=== PATIENT | female | born 1935 | race Hispanic/Latino ===

== ENCOUNTER 2017-10-28 07:20 | Day surgery (SDC) | payer MEDICARE ==
[2016-11-26 09:35] VITALS: PULSE 71
[2017-10-25 08:39] VITALS: BMI 22.1
[2017-10-28 08:01] VITALS: BP 134/83; PULSE 88; RESP 20; TEMP 97.8; O2SAT 98
[2017-10-28 08:19] LABS: BASO # 0.1 K/uL (0.0-0.2); BASO % 0.9 % (0.0-2.0); EOS # 0.1 K/uL (0.0-0.7); EOS % 1.8 % (0.0-4.0); HEMOGLOBIN 11.5 g/dL (11.0-16.0); LYMPH # 0.8 K/uL (1.0-4.3); LYMPH % 13.1 % (20.0-40.0); MEAN CELL VOLUME 88.9 fL (81.0-99.0); MEAN CORPUSCULAR HEMOGLOBIN 29.3 pg (27.0-31.0); MEAN PLATELET VOLUME 9.5 fL (7.2-11.7); MONO # 0.9 K/uL (0.0-0.8); MONO % 14.3 % (0.0-10.0); NEUT # 4.5 K/uL (1.8-7.0); NEUT % 69.9 % (50.0-75.0); RBC 3.92 Mil/uL (3.80-5.20); RED CELL DISTRIBUTION WIDTH 15.4 % (11.5-14.5); WHITE BLOOD COUNT 6.4 K/uL (4.8-10.8)
[2017-10-28] MEDS ORDERED: cefTRIAXone 1 gm 0 GM/0 ML BAG IVPB ONE (08:22)
[2017-10-28] MEDS ORDERED: Lidocaine 2% Jelly (Uro-Jet) ONE (08:23)
[2017-10-28 08:27] LABS: INR 2.4; PROTHROMBIN TIME 26.3 SECONDS (9.7-12.2)
[2017-10-28 08:34] LABS: CALCIUM 8.8 mg/dl (8.6-10.4)
--- NOTE | 2017-10-28 21:37 | CON ---
Copied To: Jayce Kearney Jr., MD Attending MD: Jayce Kearney Jr., MD DATE: 10/28/2017 HISTORY OF PRESENT ILLNESS: The patient is an 82-year-old woman, seen at the request of Dr. Gomez for evaluation of her legs. The patient was scheduled to undergo a bladder surgery which was postponed because her INR is still elevated. At the same time, she complained of new onset of redness in the lower part of her legs associated with varicosities. PAST MEDICAL HISTORY: The patient has a defibrillator. She has been on anticoagulation. Variety of other medical problems were reviewed and discussed with her. Particularly, she does not have diabetes or problems of that nature. FAMILY HISTORY: Indicated on the paper in the chart. I am not including them in the consultation. SOCIAL HISTORY: Indicated on the paper in the chart. I am not including them in the consultation. REVIEW OF SYSTEMS: Indicated on the paper in the chart. I am not including them in the consultation. PHYSICAL EXAMINATION: EXTREMITIES: Have all upper extremity pulses, both dorsalis pedis, posterior tibial ulcers. IMPRESSION: My impression is that the patient has no evidence of occlusive disease. 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 RECOMMENDATIONS: She wears support stockings, elevate her legs at night. Long-term followup was reviewed and discussed with her. There is no plan for any surgical intervention. Jayce Kearney Jr., MD
== END 2017-10-28 09:20 | disposition home or self-care (01) ==
LOC: UNDOADMIN 07:20 → C.SDS 07:20 → C.9S 07:20 → EDSTATUS 07:30 → UNDODISIN 09:20 → C.SDS 09:20
PROVIDERS: ATTEND Urology
DX: C67.9 Malignant neoplasm of bladder, unspecified (principal); I83.002 Varicose veins of unspecified lower extremity with ulcer of calf; R79.1 Abnormal coagulation profile
CPT/HCPCS: 36415; 52351; 80048; 85025; 85610; 85730; P000X

== ENCOUNTER 2017-12-15 10:46 | Day surgery (SDC) | payer MEDICARE ==
[2016-11-26 09:35] VITALS: PULSE 71
[2017-12-15 10:59] VITALS: BMI 21.6
[2017-12-15 11:17] LABS: BASO % 0.3 % (0.0-2.0); EOS # 0.1 K/uL (0.0-0.7); EOS % 1.6 % (0.0-4.0); HEMOGLOBIN 11.1 g/dL (11.0-16.0); LYMPH # 1.3 K/uL (1.0-4.3); LYMPH % 21.6 % (20.0-40.0); MEAN CELL VOLUME 89.1 fL (81.0-99.0); MEAN CORPUSCULAR HEMOGLOBIN 29.7 pg (27.0-31.0); MEAN CORPUSCULAR HGB CONC 33.3 g/dL (33.0-37.0); MEAN PLATELET VOLUME 9.8 fL (7.2-11.7); MONO # 0.6 K/uL (0.0-0.8); MONO % 10.8 % (0.0-10.0); NEUT # 3.9 K/uL (1.8-7.0); NEUT % 65.7 % (50.0-75.0); RBC 3.73 Mil/uL (3.80-5.20); RED CELL DISTRIBUTION WIDTH 15.4 % (11.5-14.5)
[2017-12-15 11:29] LABS: INR 1.2; PROTHROMBIN TIME 13.4 SECONDS (9.7-12.2)
--- NOTE | 2017-12-15 12:06 | RAD ---
HISTORY: Preoperative examination COMPARISON: No prior. TECHNIQUE: Chest PA and lateral FINDINGS: LINES AND TUBES: None. LUNG AND PLEURA: The lungs are well inflated and clear. No pleural effusion or pneumothorax. HEART AND MEDIASTINUM: There is severe cardiomegaly. There is a left-sided AICD the hilar and mediastinal contours are within normal limits. SKELETAL STRUCTURES: The bony structures are within normal limits for the patient's age. VISUALIZED UPPER ABDOMEN: Normal. OTHER FINDINGS: None. IMPRESSION: No active pulmonary disease. Severe cardiomegaly.
[2017-12-15 12:18] LABS: CALCIUM 8.9 mg/dl (8.6-10.4)
[2017-12-15] MEDS ORDERED: Iodixanol 320 MG/ML 100 ML BOTTLE IV ONE (13:43)
[2017-12-15] MEDS ORDERED: Lidocaine 1% 20 MG/2 ML PF AMP ONE (13:43)
[2017-12-15] MEDS ORDERED: Midazolam 2 MG/2 ML VIAL ONE (13:46)
--- NOTE | 2017-12-15 13:58 | CP.SDSHP ---
Same Day Surgery H & P - History Proposed Procedure: Left perc. nephrostomy tube Pre-Op Diagnosis: Left renal cancer - Allergies Allergies: Allergies aspirin Allergy (Intermediate, Verified 11/26/16 00:45) REDNESS;RASH patient states that she only rcalls sweating from med & states that he Doctor told her it was an allergy Sulfa (Sulfonamide Antibiotics) Allergy (Intermediate, Verified 11/26/16 00:45) REDNESS;RASH patient states she only recalls sweating from med sulfur dioxide Allergy (Intermediate, Verified 12/15/17 10:59) RASH - Physical Exam Mental Status: Alert & Oriented x3 - Impression Impression: Pt with left renal cancer requiring perc. access for surgery. Plan lower pole perc. neph tube placement. Pt. Evaluated Today:Candidate for Anesthesia & Procedure: Yes (ASA 2 Malampati 3) Short Stay Discharge - Short Stay Discharge Admitting Diagnosis/Reason for Visit: NEPHRO Disposition: HOME/ ROUTINE
[2017-12-15] MEDS ORDERED: Oxycodone/Acetaminophen 5/325 mg Tab PO PRN (14:00)
--- NOTE | 2017-12-15 14:00 | PCM.SURG1 ---
Surgeon's Initial Post Op Note - Surgeon's Notes Surgeon: Eugenio Phelps MD Quality Tech: NONE Type of Anesthesia: IV Sedation Pre-Operative Diagnosis: Left renal cancer Operative Findings: Nephrostogram showed heterenous filling defects within the renal collecting system. This may be a combination of tumor and blood. Post-Operative Diagnosis: Left renal cancer Operation Performed: Left perc. nephrostomy tube Specimen/Specimens Removed: none Estimated Blood Loss: EBL {In ML}: 2 Blood Products Given: N/A Drains Used: No Drains Post-Op Condition: Good Date of Surgery/Procedure: 12/15/17 Time of Surgery/Procedure: 13:55
[2017-12-16 10:42] VITALS: RESP 14; O2SAT 100
== END 2017-12-15 16:30 | disposition home or self-care (01) ==
LOC: C.SPRAD 10:46
PROVIDERS: ATTEND Radiology Vascular & Interventional Radiology
DX: C64.2 Malignant neoplasm of left kidney, except renal pelvis (principal); Z01.818 Encounter for other preprocedural examination
CPT/HCPCS: 36415; 50395; 50432; 71046; 80048; 85025; 85610; 85730; 94770; J2250; J3010; Q9967

== ENCOUNTER 2017-12-29 11:13 | Day surgery (SDC) | payer MEDICARE ==
[2016-11-26 09:35] VITALS: PULSE 71
[2017-12-29] MEDS ORDERED: cefTRIAXone 1 gm 1 GM/100 ML BAG IVPB ONE (12:35)
[2017-12-29] MEDS ORDERED: Lidocaine 2% Jelly (Uro-Jet) ONE (12:36)
[2017-12-29] MEDS ORDERED: Iohexol 240 (50 ml) ONE (12:57)
[2017-12-29] MEDS ORDERED: Gentamicin 80 mg in 0.9% NS 80 MG/100 ML BAG IVPB SCH (13:00)
[2017-12-29] MEDS ORDERED: Etomidate 20 mg/10ml Inj IV ONE (13:13)
[2017-12-29 14:33] VITALS: RESP 15
[2017-12-29 14:56] VITALS: PULSE 69; TEMP 97.7; O2SAT 99
[2017-12-29 15:39] VITALS: BP 139/89
--- NOTE | 2017-12-29 16:46 | RAD ---
Date of service: 12/29/2017 HISTORY: HEMATURIA COMPARISON: None available. FINDINGS: Nonobstructive gas pattern. Mild to moderate constipation. Left nephrostomy tube. Left ureteral stent. No coarse calcifications evident along the course of the stent. Osseous demineralization. Scoliosis convex to the left of the lumbar spine. Multilevel degenerative changes. IMPRESSION: No acute findings identified. See above.
--- NOTE | 2017-12-29 17:16 | RAD ---
PROCEDURE: HISTORY: As Above COMPARISON: None TECHNIQUE: Total fluoroscopic time utilized during the procedure: 6.9 seconds. Total dose 0.14511 mGy m squared FINDINGS: Submitted images from the current procedure: 6 please refer to the physician's notes performing the procedure. IMPRESSION: Less than 1 hour fluoroscopic time utilized during performance of the procedure
--- NOTE | 2018-01-25 10:35 | OP ---
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 COMPLICATIONS: There were no complications for the procedure. PROCEDURES: Exam under anesthesia, cystoscopy, removal of left double J-stent, retrograde pyelogram, and insertion of left double-J stent. No biopsies taken today. See the plan listed below. INDICATIONS: See the history and physical for indications. UROLOGY OPERATIVE FINDINGS: Small little bladder lesion papillary low-grade carcinoma (this definitely needs a resection sooner than later). Today, we exchanged with a new stent. We removed the old left double-J stent. We inserted a new left double-J stent. The aforementioned nephrostomy tube was in good location, but . I did discuss with the patient about the idea of doing a nephrostomy tube/dilation and a resection of the transitional cell carcinoma of the left kidney which is not standard of care, and she is not medically cleared, is not probably going to happen. Although, I do not want to remove the nephrostomy tube in case, that is an opinion At this point, I would just exchange the stent and we will make arrangements for pyelogram as best as possible, most likely we will do a ureteroscopy with resection, in any event upper pole of the kidney. We did discuss all the possibilities . At this point, this will be the plan. After discussing the options and getting consent from the patient, discussed risks, benefits, and alternatives. The patient was brought to the operating room and placed on the table. We introduced the cystoscope via the urethra. I examined via the ultrasound. I put a wire up to the kidney, using open ended ureteral stent. We then pulled the double-J stent. We exchanged the double-J stent. retrograde is significantly abnormal bladder mucosa . Overall, the patient tolerated the procedure without complication. Again, as I just mentioned, the bladder tumor was noted in the bladder. There appeared to be low-grade cancer and needed biopsy and resection . We will work on the upper tract, but this is not going today. We just put a new double-J stent, and we are going to discuss further options. So the plans are as follows: My real plan is to try to speak with the patient to get a nephroureterectomy for the kidney. Regarding the bladder, I am planning to do resection. I will get of this. We are going to discuss further options. We will make further recommendations. Edward Gomez MD
--- NOTE | 2018-01-25 11:32 | HP ---
REASON FOR ADMISSION: Treatment of transitional cell carcinoma. 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 We diagnosed it, known about it for quite some time. I recommended nephrectomy for quite some time now. Finally, I third opinion who all recommended nephrectomy. I recommend Robotic nephroureterectomy for her upper tract disease. She now has been her bladder. She has a stent in her left side, we tried to she refused a nephrectomy. She even we tried Mitomycin C. Even though we know that it does not stay in the kidney that long, we thought that it would at least benefit the patient to some extent. See those many previously dictated notes at all for this patient. Right time to recommend and encourage but her She has medical doctors but they are not part of the decision making here. She sees Dr. Oliver, she sees, Dr. Garcia Violin Maker Hand, but for me, I have been treating her today. She has a nephrostomy tube. We had arranged that and we are going to dilate the tract which is broad. She is not cleared medically or cardiology hardy but also more importantly I am concerned because she did not really stop the Coumadin, and I am also concerned because it is not the standard care recommendation. I would try to debulk the tumor. So my plan is today, I am going to change her stent but it has been so long and then we are going to be make recommendations. She also needs her bladder tumor resected. I told her at that point, I could take care of. By the mean time today, we are going to bring her and we are going to change her stents. We are not going to do the nephrostomy tube, and I am still hoping that she is going to change her mind and allow for nephrectomy . She needs a nephroureterectomy and alternatively we are going to try to debulk the tumor, and we already make out with that. In the interim, we also made sure she had bladder tumor but today we are going to change for a while. The past medical and surgical history, has multiple medical issues with this patient. Cardiac disease, she has a defibrillator, she has a pacemaker. No history of an NV. Socially, she lives alone. She has never been . She has a niece who does some times help but she does not live very close. Pretty much, the patient is completely independent. She has also some cats that she takes care of very well. Apparently, if she does not way of thinking in terms of her own care, in terms of staying in the hospital overnight either, and with the patient in lot of matters but it is somewhat difficult in terms of ____ recommendations. See below. MEDICATIONS: See chart. ALLERGIES: SEE CHART. PHYSICAL EXAMINATION: GENERAL: Well nourished female, in no apparent distress. VITAL SIGNS: Were noted. LUNGS: Clear. HEART: Normal S1 and S2. ABDOMEN: Soft. PELVIC: Deferred for now. DIAGNOSES: 1. . 2. Transitional carcinoma of the bladder. 3. Transitional carcinoma of the kidney We have discussed the options. One is we need to start treating her bladder, but today we have commenced to treat her kidney. My new recommendation has been to get a second opinion with two other urologists that recommended. I also doing we doing a nonstandard care recommendation, she knows it. I explained my concern is that bleeding and are both highly concerning to me, although in both situations. I am going to start Mitomycin may be a Mitomycin gel. For now the plan is cystotomy, changing the stent, may repeat imaging, and then further signs will follow. percutaneous nephrostomy tube dilation and resecting with a resectoscope. The plan for today is to try antibiotic prophylaxis, removing the old stent and taking the new one, and then going to At some point, we are going to do a TURBT, a bladder tumor resection. Further plans, we will follow. Edward Gomez MD [facility] # [id number]
== END 2017-12-29 15:48 | disposition home or self-care (01) ==
LOC: C.SDS 11:13
PROVIDERS: ATTEND Urology
DX: C67.9 Malignant neoplasm of bladder, unspecified (principal); C64.9 Malignant neoplasm of unspecified kidney, except renal pelvis; R31.0 Gross hematuria
CPT/HCPCS: 52005; 52332; 74018; C1725; J0696; J1580

== ENCOUNTER 2018-01-19 12:15 | Day surgery (SDC) | payer MEDICARE ==
[2016-11-26 09:35] VITALS: PULSE 71
[2018-01-18 08:00] VITALS: BMI 23.0
== END 2018-01-19 13:15 | disposition home or self-care (01) ==
LOC: C.SDS 12:15
PROVIDERS: ATTEND Urology
DX: Z53.9 Procedure and treatment not carried out, unspecified reason (principal); C67.9 Malignant neoplasm of bladder, unspecified

== ENCOUNTER 2018-01-27 07:58 | Inpatient (IN) | payer MEDICARE ==
[2016-11-26 09:35] VITALS: PULSE 71
[2018-01-18 08:00] VITALS: BMI 23.0
[2018-01-27 08:54] LABS: INR 1.4; PROTHROMBIN TIME 15.2 SECONDS (9.7-12.2)
[2018-01-27] MEDS ORDERED: Lidocaine 2% Jelly (Uro-Jet) ONE (11:02)
[2018-01-27] MEDS ORDERED: Iohexol 240 (50 ml) ONE (11:02)
[2018-01-27] MEDS ORDERED: cefTRIAXone 1 gm 1 GM/100 ML BAG IVPB ONE (11:02)
[2018-01-27] MEDS ORDERED: HYDROmorphone 0.5 mg/0.5 ml ISec IVP PRN (12:32)
--- NOTE | 2018-01-27 12:40 | RAD ---
Date of service: 01/27/2018 PROCEDURE: Intraoperative Fluoroscopy. HISTORY: HEMATURIA/BLADDER TUMOR FINDINGS: Fluoroscopic assistance was provided.. Fluoroscopy time = 21.0 sec. Radiation dose = 0.15658 mGy-cm. Please refer to the operative report from MELISSA Maharaj, , MD MATTEO.
--- NOTE | 2018-01-27 15:04 | RAD ---
Date of service: 01/27/2018 HISTORY: HEMATURIA/BLADDER TUMOR COMPARISON: Two views of the abdomen obtained. Image labeled 1 performed at 11:37 a.m. and image labeled 2 performed at 12:19 p.m. Comparison made with prior plain film radiographs of the abdomen dated 12/29/2017. FINDINGS: First image re demonstrates left-sided ureteral stent and left-sided percutaneous nephrostomy tube. Second image demonstrates left-sided ureteral stent however the percutaneous nephrostomy tube apparently has been removed. There appears to be some opacification of lower pole calices left kidney. BOWEL: Normal. No obstruction. No free air. BONES: Multilevel degenerative spondylosis of the lower thoracic and lumbar spine OTHER FINDINGS: None IMPRESSION: Situ left ureteral stent and apparent removal of percutaneous left-sided nephrostomy tube
[2018-01-27] MEDS: cefTRIAXone IV 1 gm in Dextros 50 ML IVPB SCH (17:08)
[2018-01-27 17:19] VITALS: RESP 20
--- NOTE | 2018-01-27 19:41 | CP.PCM.PN ---
Subjective - Date & Time of Evaluation Date of Evaluation: 01/27/18 Time of Evaluation: 19:34 - Subjective Subjective: PGY-1 Medicine Consult Note for Dr. Washington's service Patient is an 82 y.o female with bladder cancer, kidney cancer, HTN, A fib w/ aicd admitted for cystoscopy procedure with Dr. Gomez. Medicine was consulted for treatment of hypertension and afib w/ aicd. Patient had stent replacement done with urology team today. For full report refer to EMR. Patient states she is nauseous and has been coughing after the procedure likely secondary to anaesthesia. Patient states she has burning pain when she urinates using gallagher catheter. Patient denies fevers, chills, chest pain, sob, vomiting, constipation or diarrhea. PMH- bladder cancer, kidney cancer, HTN, A fib w/ aicd Meds-Coreg 12.5mg po bid el, Digoxin 0.125mg po daily, Lasix 20mg po daily, Lisinopril 2.5mg po daily, Zofran 4mg IVP q6h prn, Phenazopyridine 200mg po tid pc, Crestor 5mg po hs Allergies- Aspirin, sulfa drugs, sulfur dioxide Social- Denies alcohol, tobacco, durug use PMD- Dr. Gomez Code- Full Code Objective - Vital Signs/Intake and Output Vital Signs (last 24 hours): Temp Pulse Resp BP Pulse Ox 97.9 F 74 20 124/77 97 01/27/18 17:18 01/27/18 17:18 01/27/18 17:18 01/27/18 18:07 01/27/18 17:18 Intake and Output: 01/27/18 01/28/18 18:59 06:59 Intake Total 450 Output Total 100 Balance 350 - Medications Medications: Current Medications Carvedilol (Coreg) 12.5 mg PO BID EL Last Admin: 01/27/18 18:07 Dose: 12.5 mg Digoxin (Digoxin) 0.125 mg PO DAILY@1800 [facility] Docusate Sodium (Colace) 100 mg PO BID PRN PRN Reason: Constipation Last Admin: 01/27/18 18:30 Dose: 100 mg Furosemide (Lasix) 20 mg PO DAILY EL Ceftriaxone Sodium (Rocephin Iv 1 Gm Duplex) 50 mls @ 100 mls/hr IVPB DAILY EL; Protocol Last Admin: 01/27/18 17:08 Dose: Not Given Lisinopril (Zestril) 2.5 mg PO DAILY [facility] Last Admin: 01/27/18 18:07 Dose: 2.5 mg Multivitamins/Minerals (Therapeutic-M Tab) 1 tab PO 0800 [facility] Ondansetron HCl (Zofran Inj) 4 mg IVP Q6H PRN PRN Reason: Nausea/Vomiting Last Admin: 01/27/18 17:09 Dose: 4 mg Phenazopyridine HCl (Pyridium) 200 mg PO TIDPC [facility] Last Admin: 01/27/18 18:07 Dose: 200 mg Rosuvastatin Calcium (Crestor) 5 mg PO HS [facility] - Labs Labs: PT 15.2 SECONDS (9.7-12.2) H 01/27/18 08:42 INR 1.4 01/27/18 08:42 APTT 38 SECONDS (21-34) H 01/27/18 08:42 - Constitutional Appears: Non-toxic, No Acute Distress - Head Exam Head Exam: NORMAL INSPECTION, NORMOCEPHALIC - Eye Exam Eye Exam: EOMI, Normal appearance. absent: Nystagmus, Scleral icterus - ENT Exam ENT Exam: Mucous Membranes Moist - Respiratory Exam Respiratory Exam: Clear to Ausculation Bilateral, NORMAL BREATHING PATTERN. absent: Rales, Rhonchi, Wheezes - Cardiovascular Exam Cardiovascular Exam: REGULAR RHYTHM, +S1, +S2. absent: Tachycardia - GI/Abdominal Exam GI & Abdominal Exam: Soft, Normal Bowel Sounds. absent: Distended, Firm, Guarding, Tenderness - Exam Additional comments: Gallagher in place with hematuria collecting in bag - Extremities Exam Extremities Exam: Normal Inspection. absent: Calf Tenderness, Pedal Edema - Neurological Exam Neurological Exam: Alert, Awake, Oriented x3 - Psychiatric Exam Psychiatric exam: Anxious - Skin Skin Exam: Intact, Normal Color Assessment and Plan - Assessment and Plan (Free Text) Assessment: 82 year old female w/ PMH of bladder cancer, kidney cancer, HTN, and Afib w/ AICD admitted for s/p cystoscopy for stent replacement. Medicine consulted for HTN and afib. Plan: Bladder and Kidney Cancer Urology consulted: Dr. Gomez- management as per urology HTN Coreg 12.5mg po bid Lasix 20mg po daily Lisinopril 2.5mg po daily Afib w/ AICD Coreg 12.5mg po bid AC contraindicated Hyperlipidemia Crestor 5mg po HS Nausea likely secondary to general anasthesia Zofran 4mg IVP q6h prn PPx DVT: Scds, AC contraindicated in setting of hematuria GI: not indicated at this time
--- NOTE | 2018-01-27 19:51 | CP.PCM.CON ---
<Terry Peña - Last Filed: 01/27/18 19:50> History of Present Illness - History of Present Illness History of Present Illness: PGY-1 Medicine Consult Note for Dr. Washington's service Patient is an 82 y.o female with bladder cancer, kidney cancer, HTN, A fib w/ ai cd admitted for cystoscopy procedure with Dr. Gomez. Medicine was consulted for treatment of hypertension and afib w/ aicd. Patient had stent replacement done with urology team today. For full report refer to EMR. Patient states she is nauseous and has been coughing after the procedure likely secondary to anaesthesia. Patient states she has burning pain when she urinates using gallagher catheter. Patient denies fevers, chills, chest pain, sob, vomiting, constipation or diarrhea. PMH- bladder cancer, kidney cancer, HTN, A fib w/ aicd Meds-Coreg 12.5mg po bid el, Digoxin 0.125mg po daily, Lasix 20mg po daily, Lisinopril 2.5mg po daily, Zofran 4mg IVP q6h prn, Phenazopyridine 200mg po tid pc, Crestor 5mg po hs Allergies- Aspirin, sulfa drugs, sulfur dioxide Social- Denies alcohol, tobacco, durug use PMD- Dr. Gomez Code- Full Code Review of Systems - Review of Systems Review of Systems: 12 point ROS obtained and noted as in HPI Past Patient History - Infectious Disease Hx of Infectious Diseases: None - Tetanus Immunizations Tetanus Immunization: Unknown - Past Medical History & Family History Past Medical History?: Yes - Past Social History Smoking Status: Never Smoked - CARDIAC Hx Cardiac Disorders: Yes Hx Cardia Arrhythmia: Yes (Atrial fib) Hx Congestive Heart Failure: Yes Hx Hypercholesterolemia: Yes Hx Hypertension: Yes Hx Internal Defibrillator: Yes (Left chest) Other/Comment: Implanted Defibrilator - PULMONARY Hx Respiratory Disorders: Yes Hx Pneumonia: Yes (childhood) - HEENT Hx HEENT Problems: Yes (WEARS RX GLASSES) Hx Cataracts: Yes (BILAT.) - RENAL Hx Chronic Kidney Disease: Yes (kidney cancer) - HEMATOLOGICAL/ONCOLOGICAL Hx Blood Disorders: Yes Hx Cancer: Yes (Bladder kidney) Hx Chemotherapy: Yes - INTEGUMENTARY Hx Dermatological Problems: No - MUSCULOSKELETAL/RHEUMATOLOGICAL Hx Musculoskeletal Disorders: No Hx Falls: No - GASTROINTESTINAL Hx Gastrointestinal Disorders: Yes Hx Gastroesophageal Reflux: Yes Hx Hemorrhoids: Yes - GENITOURINARY/GYNECOLOGICAL Hx Genitourinary Disorders: Yes Hx Bladder Cancer: Yes Hx Hematuria: Yes (5--) - PSYCHIATRIC Hx Psychophysiologic Disorder: Yes Hx Anxiety: Yes Hx Substance Use: No - SURGICAL HISTORY Hx Surgeries: Yes Other/Comment: . Bladder tumor sx. HX: CYSTOSCOPY LEFT URETERAL STENT PLACED(10/26/17) nephrostomy tube insertion - ANESTHESIA Hx Anesthesia: Yes Hx Anesthesia Reactions: Yes (NAUSEA) Hx Malignant Hyperthermia: No Meds Allergies/Adverse Reactions: Allergies Allergy/AdvReac Type Severity Reaction Status Date / Time aspirin Allergy Intermediate REDNESS;LAURA Verified 11/26/16 00:45 H Sulfa (Sulfonamide Allergy Intermediate REDNESS;LAURA Verified 11/26/16 00:45 Antibiotics) H sulfur dioxide Allergy Intermediate RASH Verified 12/15/17 10:59 - Medications Medications: Current Medications Carvedilol (Coreg) 12.5 mg PO BID [facility] Last Admin: 01/27/18 18:07 Dose: 12.5 mg Digoxin (Digoxin) 0.125 mg PO DAILY@1800 [facility] Docusate Sodium (Colace) 100 mg PO BID PRN PRN Reason: Constipation Last Admin: 01/27/18 18:30 Dose: 100 mg Furosemide (Lasix) 20 mg PO DAILY [facility] Ceftriaxone Sodium (Rocephin Iv 1 Gm Duplex) 50 mls @ 100 mls/hr IVPB DAILY [facility]; Protocol Last Admin: 01/27/18 17:08 Dose: Not Given Lisinopril (Zestril) 2.5 mg PO DAILY [facility] Last Admin: 01/27/18 18:07 Dose: 2.5 mg Multivitamins/Minerals (Therapeutic-M Tab) 1 tab PO 0800 [facility] Ondansetron HCl (Zofran Inj) 4 mg IVP Q6H PRN PRN Reason: Nausea/Vomiting Last Admin: 01/27/18 17:09 Dose: 4 mg Phenazopyridine HCl (Pyridium) 200 mg PO TIDPC [facility] Last Admin: 01/27/18 18:07 Dose: 200 mg Rosuvastatin Calcium (Crestor) 5 mg PO HS [facility] Physical Exam - Additional Findings Additional findings: - Constitutional Appears: Non-toxic, No Acute Distress - Head Exam Head Exam: NORMAL INSPECTION, NORMOCEPHALIC - Eye Exam Eye Exam: EOMI, Normal appearance. absent: Nystagmus, Scleral icterus - ENT Exam ENT Exam: Mucous Membranes Moist - Respiratory Exam Respiratory Exam: Clear to Ausculation Bilateral, NORMAL BREATHING PATTERN. absent: Rales, Rhonchi, Wheezes - Cardiovascular Exam Cardiovascular Exam: REGULAR RHYTHM, +S1, +S2. absent: Tachycardia - GI/Abdominal Exam GI & Abdominal Exam: Soft, Normal Bowel Sounds. absent: Distended, Firm, Guarding, Tenderness - Exam Additional comments: Gallagher in place with hematuria collecting in bag - Extremities Exam Extremities Exam: Normal Inspection. absent: Calf Tenderness, Pedal Edema - Neurological Exam Neurological Exam: Alert, Awake, Oriented x3 - Psychiatric Exam Psychiatric exam: Anxious - Skin Skin Exam: Intact, Normal Color Results - Vital Signs Recent Vital Signs: Last Vital Signs Temp 97.9 F 01/27/18 17:18 Pulse 74 01/27/18 17:18 Resp 20 01/27/18 17:18 BP 124/77 01/27/18 18:07 Pulse Ox 97 01/27/18 17:18 - Labs Labs: Laboratory Results - last 24 hr 01/27/18 08:42 PT 15.2 H INR 1.4 APTT 38 H Assessment & Plan - Assessment and Plan (Free Text) Assessment: 82 year old female w/ PMH of bladder cancer, kidney cancer, HTN, and Afib w/ AICD admitted for s/p cystoscopy for stent replacement. Medicine consulted for HTN and afib. Plan: Bladder and Kidney Cancer Urology consulted: Dr. Gomez- management as per urology HTN Coreg 12.5mg po bid Lasix 20mg po daily Lisinopril 2.5mg po daily Afib w/ AICD Coreg 12.5mg po bid AC contraindicated Hyperlipidemia Crestor 5mg po HS Nausea likely secondary to general anasthesia Zofran 4mg IVP q6h prn PPx DVT: Scds, AC contraindicated in setting of hematuria GI: not indicated at this time <Jamie Washington - Last Filed: 02/10/18 20:29> Results - Vital Signs Recent Vital Signs: Last Vital Signs Temp 97.8 F 01/28/18 07:54 Pulse 74 01/28/18 07:54 Resp 20 01/28/18 07:54 BP 108/74 01/28/18 10:19 Pulse Ox 96 01/28/18 07:54 - Labs Result Diagrams: 01/28/18 07:29 01/28/18 07:29 Attending/Attestation - Attestation I have personally seen and examined this patient.: Yes I have fully participated in the care of the patient.: Yes I have reviewed all pertinent clinical information: Yes Notes (Text): Seen and examined Assessment and the plan discussed in detail with the resident and I agree with the documentation
[2018-01-28 01:56] VITALS: O2SAT 96
[2018-01-28 07:48] LABS: BASO # 0.1 K/uL (0.0-0.2); BASO % 0.8 % (0.0-2.0); EOS # 0.1 K/uL (0.0-0.7); HEMOGLOBIN 9.4 g/dL (11.0-16.0); LYMPH # 0.6 K/uL (1.0-4.3); LYMPH % 8.4 % (20.0-40.0); MEAN CELL VOLUME 88.6 fL (81.0-99.0); MEAN CORPUSCULAR HEMOGLOBIN 29.5 pg (27.0-31.0); MEAN CORPUSCULAR HGB CONC 33.3 g/dL (33.0-37.0); MEAN PLATELET VOLUME 9.8 fL (7.2-11.7); MONO # 0.9 K/uL (0.0-0.8); MONO % 12.5 % (0.0-10.0); NEUT # 5.6 K/uL (1.8-7.0); NEUT % 77.3 % (50.0-75.0); PLATELET COUNT 106 K/uL (130-400); RBC 3.18 Mil/uL (3.80-5.20); RED CELL DISTRIBUTION WIDTH 15.1 % (11.5-14.5); WHITE BLOOD COUNT 7.2 K/uL (4.8-10.8)
[2018-01-28 07:57] VITALS: BP 108/72; PULSE 74; TEMP 97.8
[2018-01-28] MEDS ORDERED: Multivitamin With Minerals Tab PO SCH (08:00)
[2018-01-28 08:12] LABS: ALB/GLOB RATIO 0.9 (1.0-2.1); ALBUMIN 2.9 g/dL (3.5-5.0); CALCIUM 7.9 mg/dl (8.6-10.4)
[2018-01-28] MEDS: cefTRIAXone IV 1 gm in Dextros 50 ML IVPB SCH (10:18)
[2018-01-28 10:51] LABS: ANISOCYTOSIS SLIGHT; BANDS 2 % (0-2); EOSINOPHIL 1 % (0-4); LYMPHOCYTE 5 % (20-40); MONOCYTE 14 % (0-10); NEUTROPHIL 78 % (50-75); PLATELET ESTIMATE SLIGHTLY DECREASED (NORMAL); TOTAL CELLS COUNTED 100
[2018-01-28 10:52] LABS: BURR CELLS SLIGHT; HYPOCHROMIC SLIGHT; OVALOCYTES SLIGHT; POLYCHROMIC SLIGHT
[2018-01-28 11:28] LABS: INR 1.5; PROTHROMBIN TIME 16.7 SECONDS (9.7-12.2)
--- NOTE | 2018-01-28 16:54 | CP.PCM.PN ---
<LincolnDaria morrison E - Last Filed: 01/28/18 16:50> Subjective - Date & Time of Evaluation Date of Evaluation: 01/28/18 Time of Evaluation: 11:20 - Subjective Subjective: Medicine progress note ( Dr. Washington's service) Patient was seen and examined at bedside, while patient was sitting up in bed having lunch. Patient reports that she is doing well and denies any acute complaints or issues. Objective - Vital Signs/Intake and Output Vital Signs (last 24 hours): Temp Pulse Resp BP Pulse Ox 97.8 F 74 20 108/74 96 01/28/18 07:54 01/28/18 07:54 01/28/18 07:54 01/28/18 10:19 01/28/18 07:54 Intake and Output: 01/28/18 01/28/18 06:59 18:59 Intake Total 550 350 Output Total 750 1000 Balance -200 -650 - Medications Medications: Current Medications Carvedilol (Coreg) 12.5 mg PO BID [facility] Last Admin: 01/28/18 10:18 Dose: 12.5 mg Digoxin (Digoxin) 0.125 mg PO DAILY@1800 ANGELITA Docusate Sodium (Colace) 100 mg PO BID PRN PRN Reason: Constipation Last Admin: 01/27/18 18:30 Dose: 100 mg Furosemide (Lasix) 20 mg PO DAILY [facility] Last Admin: 01/28/18 10:19 Dose: 20 mg Ceftriaxone Sodium (Rocephin Iv 1 Gm Duplex) 50 mls @ 100 mls/hr IVPB DAILY [facility]; Protocol Last Admin: 01/28/18 10:18 Dose: 100 mls/hr Lisinopril (Zestril) 2.5 mg PO DAILY [facility] Last Admin: 01/28/18 10:19 Dose: 2.5 mg Multivitamins/Minerals (Therapeutic-M Tab) 1 tab PO 0800 [facility] Last Admin: 01/28/18 08:34 Dose: 1 tab Ondansetron HCl (Zofran Inj) 4 mg IVP Q6H PRN PRN Reason: Nausea/Vomiting Last Admin: 01/27/18 17:09 Dose: 4 mg Phenazopyridine HCl (Pyridium) 200 mg PO TIDPC [facility] Last Admin: 01/28/18 10:19 Dose: 200 mg Rosuvastatin Calcium (Crestor) 5 mg PO HS [facility] Last Admin: 01/27/18 21:52 Dose: 5 mg - Labs Labs: 01/28/18 07:29 01/28/18 07:29 PT 16.7 SECONDS (9.7-12.2) H 01/28/18 11:14 INR 1.5 01/28/18 11:14 APTT 34 SECONDS (21-34) 01/28/18 11:14 - Constitutional Appears: No Acute Distress - Head Exam Head Exam: ATRAUMATIC, NORMAL INSPECTION - Eye Exam Eye Exam: EOMI, Normal appearance - ENT Exam ENT Exam: Mucous Membranes Moist - Respiratory Exam Respiratory Exam: Clear to Ausculation Bilateral, NORMAL BREATHING PATTERN. absent: Prolonged Expiratory Phase, Rhonchi, Wheezes - Cardiovascular Exam Cardiovascular Exam: Irregular Rhythm, +S1, +S2 - GI/Abdominal Exam GI & Abdominal Exam: Soft, Normal Bowel Sounds. absent: Guarding, Rigid, Tenderness - Extremities Exam Extremities Exam: absent: Calf Tenderness, Pedal Edema - Back Exam Additional comments: Dressing is clean, dry and intact over site of left nephrostomy removal - Neurological Exam Neurological Exam: Alert, Awake, Oriented x3 - Psychiatric Exam Psychiatric exam: Normal Affect - Skin Skin Exam: Normal Color Assessment and Plan (1) History of bladder cancer Assessment & Plan: Urology, Dr. Tobin Gomez as primary * Management as per recommendation * S/p cytoscopy * Hernandez catheter in place with hematuria Status: Acute (2) History of kidney cancer Assessment & Plan: Urology, Dr. Tobin Gomez as primary * Management as per recommendation Status: Acute (3) Hypertension Assessment & Plan: Coreg 12.5mg po bid Lasix 20mg po daily Lisinopril 2.5mg po daily Status: Acute (4) Atrial fibrillation Assessment & Plan: AICD in place Coreg 12.5mg po bid Coumadin currently held due hematuria, will be restart as per urology and cardiology outpatient Status: Acute (5) Hyperlipidemia Assessment & Plan: Crestor 5mg PO HS Status: Acute (6) Prophylactic measure Assessment & Plan: DVT: Scds, AC contraindicated in setting of hematuria GI: not indicated at this time Disposition: Plans for discharge today as per primary, Dr. Gomez All plans and management discussed with Dr. Washington Status: Acute - Assessment and Plan (Free Text) Assessment: 82 year old female w/ PMH of bladder cancer, kidney cancer, HTN, and Afib w/ AICD admitted for s/p cystoscopy for stent replacement. Medicine consulted for HTN and afib. <Jamie Washington - Last Filed: 02/10/18 20:19> Objective - Vital Signs/Intake and Output Vital Signs (last 24 hours): Temp Pulse Resp BP Pulse Ox 97.8 F 74 20 108/74 96 01/28/18 07:54 01/28/18 07:54 01/28/18 07:54 01/28/18 10:19 01/28/18 07:54 - Labs Labs: 01/28/18 07:29 01/28/18 07:29 PT 16.7 SECONDS (9.7-12.2) H 01/28/18 11:14 INR 1.5 01/28/18 11:14 APTT 34 SECONDS (21-34) 01/28/18 11:14 Attending/Attestation - Attestation I have personally seen and examined this patient.: Yes I have fully participated in the care of the patient.: Yes I have reviewed all pertinent clinical information, including history, physical exam and plan: Yes Notes (Text): I agree with the documentation
[2018-01-28] MEDS ORDERED: Digoxin 125 mcg (0.125 mg) Tab PO SCH (18:00)
--- NOTE | 2018-02-12 10:18 | HP ---
REASON FOR ADMISSION: For gross hematuria and further treatment. HISTORY OF PRESENT ILLNESS: Ms. Trujillo is an extremely pleasant lady who is but not following the medical recommendation of several urologists. She is here today. She will exchange her stent. We will also going to plan for a removal of the stent, and we are going to remove her nephrostomy tube. The history is as follows: The patient has a low-grade transitional cell carcinoma. She has had low-grade transitional cell carcinoma in the urinary bladder and then she developed an upper tract tumor in the upper pole of the kidney. We have been following the patient for quite sometime with her upper tract tumor. The recommendation has been for a nephroureterectomy. I had sent her to two other urologists, first her medical stenciling machine tender at local center elsewhere, and despite the recommendations of for a nephroureterectomy. Even offered her robotically. Today, she is not accepted it as a possible option. Responsive in bed, 82-year-old, she does not know what will happen. Along those lines, so therefore today, we are not going to do any further surgical treatment. We tried to give mitomycin, again, with limited success. Presented with any major difficult to impact another form of mitomycin, but that will be difficult to get it here. The mitomycin gel, discussed that as a possibility, but also discussed the possibility for her to go elsewhere. She social issue, but it is worth putting in the chart. She lives alone. She has cats that she is very concerned about leaving them alone. As her efforts have been very difficult, but the recommendation from our standpoint is never waiver choice of nephroureterectomy. We ordered the possibility among the other pending of her percutaneous treatment. She had a nephrostomy tube inserted and every time I bring her in for clearance, she is not cleared, then the anesthesiologist for consult. So, today we are actually going to remove her nephrostomy tube. We are going to have that planned, and we are going to plan for a cystoscope. We are going to treat endoscopically. We are going to try a repeat biopsy. Then, we are going to discuss further options including insisting that the patient go to another physician without making her feel abandoned . It has been a very long course and I have explained to the patient through all her confusion and difficulty with the nephrostomy tube, treatment difficulty getting around and being herself. I have explained to her that we are going to remove it today and hope we should get normal. But I am still concerned that she should have a nephroureterectomy. She is here today for a cysto, for insertion of a double J stent from the left kidney, and removal of nephrostomy tube. PAST MEDICAL/SURGICAL HISTORY: As listed above. She has a cardiac condition. The patient of Dr. Zuniga, she has a defibrillator in. Multiple medical issues. MEDICATIONS: See the chart. She is also on Coumadin. She has to be on and off Coumadin each time we do procedures. REVIEW OF SYSTEMS: As listed above, but she is not driving. PHYSICAL EXAMINATION: GENERAL: A well-nourished female in no apparent distress. VITAL SIGNS: Within normal limits in the chart. LUNGS: Clear. HEART: Normal S1, S2. ABDOMEN: Overall soft. NEUROLOGIC: No new changes. PELVIC: Nephrostomy tube is in good location. Pelvic exam is deferred during the time of cysto, but I should mention there are no pelvic or rectal masses. The bladder is mobile completely. DIAGNOSES: Gross hematuria and low-grade transitional cell carcinoma, both in the urinary bladder and in the kidney. ASSESSMENT AND PLAN: The plan is as follows: Today, we are going to plan for removal of nephrostomy tube, cystoscopy, stent insertion, and we are going to plan for bladder biopsy and then further plans to follow. Risks and benefits discussed with the patient at length many times. We are going to plan to proceed. ADDENDUM See my operative note. We found bladder tumor in the bladder. I biopsied it. It looked actually a little bit high grade than previous. We will see the final pathology and also I want to mention doing a urethroscopy. The remainder of the . So, further plans will follow. See the operative note. During the urethroscopy, there also looked like ____ in the ureter at this point. I am worried about within the ureter. See the operative note, but I am going to insist that the patient at this point get a second, third, and fourth opinion too. Edward Gomez MD [facility] # [id number]
--- NOTE | 2018-02-13 07:43 | OP ---
PROCEDURE DATE: 01/27/2018 PREOPERATIVE DIAGNOSIS: Transitional cell carcinoma of the bladder. 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 PROCEDURE: Exam under anesthesia, cystoscopy, left ureteroscopy, left renoscopy, biopsy of the left upper tract collection system with fulguration of tissue. Bladder biopsy and fulguration. Examination under anesthesia and removal of the . SURGEON: Edward Gomez MD. COMPLICATIONS: There were no complications. BLOOD LOSS: Less than 10 mL. FINDINGS: 1. There was a gigantic tumor in the left upper pole collecting system consistent with known transistional cell carcinoma. 2. Multiple bladder tumors. 3. couple of implants along the ureter. No biopsies were taken or reviewed today (as the patient will allow a nephroureterectomy, she will need a biopsy). At the termination of the procedure, we have removed the nephrostomy tube. We have a good, excellent working double J stent. There were no complications (see the addendum at the end of the note). UROLOGY OPERATIVE FINDINGS: 1. Within the bladder mucosa, there are a few lesions that are abnormal, most of them appeared to be extremely low grade with a few higher grade. I took one biopsy of the more rectal looking lesion. We will see the pathology, we will get the biopsy of the bladder wall, but we went and deep. 2. Along the ureteroscopy, we see what looks like one or two little abnormal areas along the mucosa as the patient does not really have a previous stent, but is concerning for a transitional cell carcinoma along the ureter, especially . 3. Exudative finding within the upper pole of collecting system, I can see with my eyes and the collecting system outlined is abnormal. It is gigantic, . We biopsied, we fulgurated, but we definitely did not remove the whole set. We will also remove the nephrostomy tube. I do want to mention that previously we have inserted nephrostomy tube. We had it inserted by the interventional radiologist and their efforts. In an effort to see if we can do a nephrostomy tube track dilation and try with the nephroscope to see if we could resect the tissue. Of note, in the history and physical, the patient has been to multiple urologists, at least 3 or 4, and actually scheduled for the 5th; and the recommendation of everybody is the nephroureterectomy but one doctor suggested the possibility for a nephrostomy tube. I discussed this with the patient, so we tried it, and each time, try to get medical and cardiology clearance, and each time, the patient comes back into the hospital, we did not have clearance and the anesthesiologist are not willing to try. But today, we finally removed it. See the addendum at the end of this note for further explanation. DESCRIPTION OF PROCEDURE: After obtaining informed consent, the patient was placed on the table. Routine monitor was placed. Time-out was called that confirmed the patient and positioning. The patient is off Coumadin, INR is rechecked. Antibiotic prophylaxis reviewed. The patient has a CBI and she also has a pacemaker. We used the antibiotic prophylaxis appropriately. We introduced the cystoscope via urethra. The bladder mucosa is identified. There were few abnormalities, picture were taken and saved. We biopsied and fulgurated. We now turned our attention towards the renal lesion. A wire was passed up to the kidney, we went adjacent to that wire along the ureteral wall with the abnormalities, it is not many but there is a few, at least 4 or so that just looked abnormal. We will have to evaluate this further. Either way, with the wire in place, we were able to inject contrast and outline the kidney. The upper pole collecting system is completely obliterated. I put the scope to directly the lesion, I biopsied, fulgurated it, but there is no way that we could . At the termination, we put a double J stent in. There is no bleeding. There are Hernandez catheters. Overall, the patient tolerated the procedure well without complication. ADDENDUM: See the history and physical for further details. Very pleasant extremely pleasant lady who has this unusual situation. She has a very weak support system, she lives alone. She has one niece who is not nearby, who she is not that she can come down to bring her everywhere. She has difficulty getting anywhere. Today, we are going the procedure and quite conformable but she is much prepared, however, she has done in [place]. I have tried a few times to have her get cardiology clearance, to be put in a prone position to have the procedure for a nephrostomy tube cross dilation, and then a resection of the tumor. These things are happening despite multiple efforts of trying, and therefore, we today removed the nephrostomy tube. What the patient would most benefit from what I can gather would be a nephroureterectomy. She is very worried about ending up then. She is very worried about renal dialysis, and I cannot guarantee that, that would not happen. Of course, I told her that it is very uncommon and that many nephrostomies are done kidney. She had other doctors and I discussed with her, she can discuss with her primary doctor's office about the idea of having her adhesion tester. She may discuss it with her but our recommendations . At this point, she also has seen Dr. Knight, urologist in [place], and he has recommended seeing and maybe perhaps, she will agree to it. In the interim, we are going to recommend that we be a little more aggressive with the bladder, and we are going to bring her for a TURBT as well. We would like to take a stent out of her ureter. IMPRESSION: We discussed at great length that the recommendations are to have a nephroureterectomy despite her concerns and risks. Further plans are we are going to follow. We are going to follow the patient closely, and we are going to encourage her to have nephroureterectomy. Edward Gomez MD
--- NOTE | 2018-02-13 07:48 | OP ---
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 POSTOPERATIVE DIAGNOSES: Transitional cell carcinoma of the left upper calyx, and also bladder cancer, hematuria, possible ureteral tumor as well. PROCEDURES: Cystoscopy, a left ureteroscopy, a left renoscopy, a left renal biopsy of the upper pole of the left collecting system with fulguration, a bladder biopsy and fulguration, and removal of left nephrostomy tube. COMPLICATIONS: There were no complications. BLOOD LOSS: Less than 20 mL. SPECIMENS SENT DOWN: Both bladder tumor biopsy and fulguration and bladder biopsy and also left upper pole collecting system tumor. There were no complications. At the termination of procedure, a double-J stent in good location within the left collecting system. FINDINGS: Bladder mucosa has few irregularities that are consistent with transitional cell carcinoma. There are a few that are little bit higher appearing and looking a little more erosive than previously are noted. I took a biopsy sample of one of those. We will await for the pathology. There is more than one recurrent (see my addendum at the end as well). On the ureteroscopy, there was very clear efflux on the right side. On the ureteroscopy, there is an abnormal area along the wall of the ureter. No biopsies were taken of that today. This needs evaluation (although I had mentioned in the history and physical, see the addendum at the end). As the patient will just allow a nephroureterectomy, we do not need individual treatment. The main finding in the finding session should be that in the left upper portion of the collecting system on the retrograde. It does not show the wall well. There is a definite defect. Then, I can physically see with my eyes with the renoscopy of normal mucosa. We sent biopsies of the pathology for fulgurated. It is much too big to from below. See below. The nephrostomy tube is also removed. She has a left nephrostomy tube. See history and physical for further details. She had a left nephrostomy tube inserted in the hook and coapted that although it is not candid of care and it has not been dialyzed and is not anybody's recommendation, but there may be we can dilate the tract. The interventional radiologist at my request was willing to put in a nephrostomy tube. I am going to dilate the joint and then try to see if I can recheck through a nephroscope or even requirement of a cystoscope and see if we could reflect some of the tissues. After multiple attempts during the patient here through the end and each time not having clearance, we decided today to remove the nephrostomy tube. See the addendum at the end of this operative note. As we removed today, we are not going to proceed that avenue. The other finding is that the bladder mass is not fixed at all, the bladder is completely mobile. INDICATIONS FOR TODAY'S PROCEDURE: She is an extremely pleasant 82-year-old patient, but not following the recommendations. She has now seen about four urologists at this point. The recommendation is for nephroureterectomy for an upper pole transitional cell carcinoma, although it is low grade. I previously to be low grade in the pathology report. There seems to be an area that is unresectable and is also too large for a reflection. It is not a small amount of tissue. Given that, my recommendation is for nephroureterectomy even stronger effort today. The patient has many social issues. She lives alone. Therefore, it is difficult for her to get around. It is difficult to manage in taking care of herself. She is very concerned that nephrectomy ends up on dialysis and that will be done immediately. In the interim, she is complaining correctly that she is not able to be herself. She is not able to get around with the nephrostomy, she is not able to get around this, her nephrostomy, she is not able to shop. We discussed it at length. She has a very little support system. See history and physical for further details. She is extremely concerned about it. It is difficult to manage this situation and reached out to her grass farmer to exactly determine as well about discussing different options available. Today, she is here for the above-listed procedure. After discussing options with the patient at length, risks, benefits and alternatives, she is off the Coumadin. She was brought to the hospital where the noted INR is accepted as noted. DESCRIPTION OF PROCEDURE: The patient had . Routine monitors were placed. Time-out was called to confirm the patient and positioning. She was in lithotomy position. We introduced the cystoscope via urethra. Retrograde pyelogram was performed. We placed a wire up to the kidney. We then go up with a rigid scope. I would like to mention in the urinary bladder, the ureteroscope and we identified some bladder abnormalities. We took biopsies and we fulgurated that. We then bleeding, infection, perforation. The patient wanted to obtain some of the tissue diagnosis to see if it is also low grade, but now some of the lesions looked a little higher. The procedure continued. Antibiotic prophylaxis used. Time-out was called. We introduced the cystoscope via urethra and identified some lesions. Multiple pictures were taken. Today, the goal was not to resect all of them. The goal is to get nephrostomy tube out, so she can go back to shopping and taking care of herself and inserted a stent to assess the ureter upper pole. I do want to mention again that previously we tried multiple sessions where we tried to do a nephrostomy tube tract dilation and resection, but this has worked out adequately. For today's procedure, she was on the table. Routine monitors were placed. Time-out was called to confirm the patient and positioning. We introduced ureteroscope via urethra. few lesions that we biopsied, fulgurated, with biopsy forceps. See the pathology report. I suspect . Now, we turned our attention to the ureter. The scope was positioned retrograde. We did put a wire up to the kidney per the rigid ureteroscope. We were able to go all the way right up to the kidney. I do want to mention on the way up and down, I was inspecting a little bit along the ureteral wall. There were definite abnormalities. Pictures were taken and saved. No biopsies were taken today. We now went to the kidney and we identified this cancer. We could visualize and took a specimen of it. We fulgurated its much to be resected the whole thing. Overall, the patient tolerated the procedure well without complications. We then put the double-J stent and I think it is in good location. We removed the stent. We emptied the bladder. The patient tolerated the procedure without complications. ADDENDUM: A very pleasant 82-year-old lady who is very worried about nephrectomy in her age. She does have multiple medical problems, but none of them are imminent . The low-grade transitional cell carcinoma of the kidney control of bleeding and control of growth even though it is low grade, the other possibility is that a high-grade lesion in there, and it is unresectable until we resect it. medical issues that are concerning particularly for this 82-year-old lady, we still would recommend a nephroureterectomy . So, I have discussed this with the patient. She is yet scheduled to see two more doctors or one more doctor either this setting. to have robotic nephroureterectomy. . I will discuss it with her at great length and she has gone on my recommendations and she is also going on her doctor's recommendation as well. Edward Gomez MD
== END 2018-01-28 17:22 | disposition home or self-care (01) | DRG 657 ==
LOC: C.SDS 07:58 → C.9E 13:06 → C.3T 13:35
PROVIDERS: ADMIT Urology; ATTEND Urology
PROC: 0T518ZZ Destruction of Left Kidney, Via Natural or Artificial Opening Endoscopic (ICD-10-PCS; 2018-01-27)
PROC: 0TBB8ZX Excision of Bladder, Via Natural or Artificial Opening Endoscopic, Diagnostic (ICD-10-PCS; 2018-01-27)
PROC: 0TP5X0Z Removal of Drainage Device from Kidney, External Approach (ICD-10-PCS; 2018-01-27)
PROC: 0T5B8ZZ Destruction of Bladder, Via Natural or Artificial Opening Endoscopic (ICD-10-PCS; 2018-01-27)
PROC: BT1FZZZ Fluoroscopy of Left Kidney, Ureter and Bladder (ICD-10-PCS; 2018-01-27)
PROC: 0TB18ZX Excision of Left Kidney, Via Natural or Artificial Opening Endoscopic, Diagnostic (ICD-10-PCS; principal; 2018-01-27 10:00)
DX: C65.2 Malignant neoplasm of left renal pelvis (principal); C67.3 Malignant neoplasm of anterior wall of bladder; N28.9 Disorder of kidney and ureter, unspecified; R31.0 Gross hematuria; Z93.6 Other artificial openings of urinary tract status; I13.0 Hypertensive heart and chronic kidney disease with heart failure and stage 1 through stage 4 chronic kidney disease, or unspecified chronic kidney disease; I50.9 Heart failure, unspecified; I48.91 Unspecified atrial fibrillation; E78.5 Hyperlipidemia, unspecified; E78.00 Pure hypercholesterolemia, unspecified; N18.9 Chronic kidney disease, unspecified; K21.9 Gastro-esophageal reflux disease without esophagitis; Z87.01 Personal history of pneumonia (recurrent); Z95.810 Presence of automatic (implantable) cardiac defibrillator